=== PATIENT | female | born 1970 | race Caucasian/White ===

== ENCOUNTER 2022-12-30 18:20 | Emergency (ER) | payer BC ==
[2022-12-30] MEDS ORDERED: Sodium Chloride 0.9% 10 ML Syringe FLUSH PRN (19:07)
[2022-12-30] MEDS ORDERED: Sodium Chloride 0.9% 1,000 ML IV ONE (19:07)
[2022-12-30] MEDS ORDERED: Promethazine 12.5 MG in Sodium Chloride 0.9% 50 ML IV ONE (19:08)
[2022-12-30 19:33] LABS: ESTIMATED GFR 77 mL/min (>60)
[2022-12-30] MEDS ORDERED: Promethazine 25 MG Tab PO ONE (21:49)
[2022-12-30 22:07] VITALS: BP 130/70; PULSE 65
== END 2022-12-30 22:06 | disposition home or self-care (01) ==
LOC: FB.ED 18:20
DX: R10.9 Unspecified abdominal pain (principal); R73.9 Hyperglycemia, unspecified; R11.0 Nausea; Z79.899 Other long term (current) drug therapy
CPT/HCPCS: 36415; 80053; 81001; 81025; 83690; 83735; 85025; 86140; 96360; 96361; 99284; A9270; J2550; J3490; J7030